=== PATIENT | female | born 1960 | race Caucasian/White ===

== ENCOUNTER → 2016-05-16 | Outpatient (CLI) | payer BC ==
[~2016-05-16] MED LIST: Albuterol 0.083% 2.5 MG/3 ML Neb Soln NEB ONE
== END ==
LOC: MW.RT 13:01
PROVIDERS: ATTEND Internal Medicine
DX: Z87.891 Personal history of nicotine dependence (principal)
CPT/HCPCS: 94060; 94729

== ENCOUNTER 2016-06-01 06:37 | Day surgery (SDC) | payer BC ==
[~2016-06-01 06:37] MED LIST changes: -Albuterol 0.083% 2.5 MG/3 ML Neb Soln NEB ONE; +Lactated Ringers 1,000 ML IV SCH; +Sodium Chloride 0.9% 10 ML Syringe FLUSH PRN; +Sodium Chloride 0.9% 2.5 ML Syringe FLUSH PRN
--- NOTE | 2016-06-01 07:14 | PCM.PREANE ---
Preanesthetic Assessment - Anesthesia/Transfusion/Family Hx Anesthesia History: Prior Anesthesia Without Reaction Transfusion History: No Prior Transfusion(s) - Physical Assessment O2 Sat by Pulse Oximetry: 95 Respiratory Rate: 18 Vital Signs: Last Vital Signs Temp 35.9 C 06/01/16 06:54 Pulse 95 06/01/16 06:54 Resp 18 06/01/16 06:54 BP 130/90 06/01/16 06:54 Pulse Ox 95 06/01/16 06:54 Height: 1.68 m Weight: 116.12 kg - Allergies Allergies/Adverse Reactions: Allergies Allergy/AdvReac Type Severity Reaction Status Date / Time No Known Allergies Allergy Verified 05/03/16 08:15 PreAnesthesia Questionnaire HEENT History: Reports: Other (see below) Other HEENT History: wears glasses Cardiovascular History: Reports: Other (see below) Other Cardiovascular History: "I have been told I had a murmur" Gastrointestinal History: Reports: None 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: Endocrine/Metabolic History: Reports: Diabetes, type II (diagnose less than a year ago), Obesity/BMI 30+ - Past Surgical History Head Surgeries/Procedures: Reports: None HEENT Surgical History: Reports: Adenoidectomy, Tonsillectomy GI Surgical History: Reports: Cholecystectomy, Colonoscopy (17 years ago) - SUBSTANCE USE Smoking Status *Q: Former Smoker (quit a year ago) Recreational Drug Use History: No - HOME MEDS Home Medications: Home Meds Estrogen,Con/M-Progest Acet [Prempro 0.45-1.5 MG] 1 tab PO DAILY 05/03/16 [ History] Krill/Om-3/DHA/EPA/Phospho/Ast [[place]-3 Krill Oil 1,000 mg] 1 tab PO DAILY 05/03 [History] Multivitamin [Multivitamins] 1 tab PO DAILY 05/03/16 [History] metFORMIN HCl [Metformin HCl] 500 mg PO BID 05/03/16 [History] Ferrous Sulfate 324 mg PO DAILY 05/06/16 [History] Psyllium Husk (With Sugar) [Metamucil Powder] 1 dose PO BID 05/06/16 [History] - CURRENT (IN HOUSE) MEDS Current Meds: Current Medications Lactated Ringer's (Ringers, Lactated) 1,000 mls @ 125 mls/hr IV ASDIRECTED ALESSANDRO Last Admin: 06/01/16 06:56 Dose: 125 mls/hr Sodium Chloride (Saline Flush) 10 ml FLUSH ASDIRECTED PRN PRN Reason: Keep Vein Open Sodium Chloride (Saline Flush) 2.5 ml FLUSH ASDIRECTED PRN PRN Reason: Keep Vein Open Preanesthetic Assessment - ANESTHESIA/TRANSFUSION/FAMILY HX Anesthesia/Transfusion History: Prior Anesthesia Type of Anesthesia Reaction: Denies: Allergy, Anesthesia Awareness, Excessive Somnolence, Excessive Nausea/Vomiting, Excessive Itching, Excessive Shivering, Malignant Hyperthermia, Malignant Hyperthermia, Family History, Pseudocholinesterase Deficiency, Pseudocholinesterase Deficiency, Family History of, Urinary Retention, Unknown, Other (see below) Family History of Anesthesia Reaction: No Other Intubation History Comment: no known problems - REVIEW OF SYSTEMS Constitutional: Reports: no symptoms 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 Respiratory: Reports: no symptoms Cardiovascular: Reports: no symptoms Other: Reports: None - PHYSICAL ASSESSMENT O2 Sat by Pulse Oximetry: 95 RR: 18 Vital Signs: Last Vital Signs Temp 35.9 C 06/01/16 06:54 Pulse 95 06/01/16 06:54 Resp 18 06/01/16 06:54 BP 130/90 06/01/16 06:54 Pulse Ox 95 06/01/16 06:54 Height: 1.68 m Weight: 116.12 kg ASA Class: 2 Mental Status: Alert & Oriented x3 Airway Class: Mallampati = 2 Dentition: Reports: Normal Dentition Thyro-Mental Finger Breadths: 3 Mouth Opening Finger Breadths: 3 ROM/Head Extension: Full Respiratory Status: lungs clear to auscultation bilaterally Cardiovascular Status: regular rate & rhythm, normal S1, S2, no murmur, blood pressure WNL - ALLERGIES Allergies/Adverse Reactions: Allergies Allergy/AdvReac Type Severity Reaction Status Date / Time No Known Allergies Allergy Verified 05/03/16 08:15 - BLOOD Blood Available: No - ANESTHESIA PLAN Preop Beta Shazia: No Anesthesia Type Planned: MAC - ACKNOWLEDGEMENTS Pt an Appropriate Candidate for the Planned Anesthesia: Yes Alternatives and Risks of Anesthesia Discussed w Pt/Guardian: Yes Pt/Guardian Understands and Agrees with Anesthesia Plan: Yes
[2016-06-01] MEDS ORDERED: Propofol 200 MG/20 ML SDV ONE ×4 (07:20→08:35)
[2016-06-01] MEDS ORDERED: Lidocaine 2% 5 ML SDV ONE (07:20)
[2016-06-01] MEDS ORDERED: fentaNYL 100 MCG/2 ML SDV ONE (07:20)
[2016-06-01] MEDS ORDERED: Midazolam 1 MG/ML 2 ML SDV ONE (07:49)
[2016-06-01] MEDS ORDERED: Glycopyrrolate 0.2 MG/ML SDV ONE (07:51)
--- NOTE | 2016-06-01 09:00 | PCM.OPNOTE ---
- General Post-Op/Procedure Note Date of Surgery/Procedure: 06/01/16 Operative Procedure(s): Incomplete colonoscopy Findings: Mild hemorrhoidal disease Pre Op Diagnosis: Hematochezia Post-Op Diagnosis: same Anesthesia Technique: MAC Primary Surgeon: Lona Shah Condition: Good
--- NOTE | 2016-06-01 09:09 | PCM.POSTAN ---
POST ANESTHESIA ASSESSMENT - MENTAL STATUS Mental Status: alert, oriented - RESPIRATORY Respiratory Status: respiratory rate WNL, airway patent, O2 saturation stable - CARDIOVASCULAR CV Status: pulse rate WNL, blood pressure stable - GASTROINTESTINAL GI Status: no symptoms - POST OP HYDRATION Hydration Status: adequate & stable - OBSERVATIONS Free Text/Narrative:: no anesthesia problems
--- NOTE | 2016-06-01 15:56 | CR ---
EXAMINATION: Single contrast barium enema HISTORY: Incomplete colonoscopy COMPARISON: None TECHNIQUE: Standard single contrast barium enema performed. FINDINGS: The colon and rectum are normally distensible. No filling defect or stricture identified. There are few scattered diverticula identified. No reflux into the terminal ileum. The appendix is v isualized. IMPRESSION: 1. Mild diverticulosis, otherwise unremarkable barium enema.
--- NOTE | 2016-06-01 22:04 | OR ---
SURGEON: YUSUF VELÁSQUEZ MD DATE OF PROCEDURE: 06/01/2016 PREOPERATIVE DIAGNOSIS: Hematochezia. POSTOPERATIVE DIAGNOSIS: Hematochezia. PROCEDURE PERFORMED: Incomplete colonoscopy. INSTRUMENT USED: Olympus colonoscope. ANESTHESIA: MAC. EXTENT OF EXAM: To the hepatic flexure. PREPARATION: Fair to poor. LIMITATIONS: Stool within the colon, extreme tortuosity throughout the colon. INDICATIONS FOR EXAMINATION: Patient is a 55-year-old female with a past medical history significant for hematochezia, as diagnosed on fecal occult blood stool testing. The patient and I discussed the colonoscopy procedure including the expected perioperative course. We discussed the risks, including bleeding, infection, damage to surrounding structures. The patient verbalized understanding and wished to proceed. PROCEDURE IN DETAIL: The patient was met in the preoperative area and we again discussed the major risks and benefits associated with the procedure. The patient verbalized understanding and wished to proceed. The patient was brought to the endoscopy suite and placed in left lateral decubitus position. A time-out was completed verifying the patient's name, age, date of , allergies, and procedure to be performed. Monitored anesthesia care was induced and continuous oxygen was provided via face mask throughout the procedure. After adequate sedation was achieved, the digital rectal exam was performed. This examination revealed mild hemorrhoidal disease. A well lubricated colonoscope was then inserted in the rectum and advanced under direct visualization to the level of the hepatic flexure. Due to extreme tortuosity of the colon. I could not advance the scope beyond this area. I attempted to place the patient in different positions and attempted pressure in different areas of the abdomen, however, after an hour of trying, I was unable to reach the cecum. The scope was then fully withdrawn while examining the color, texture, anatomy, and tear of the mucosa from the cecum to the anal canal. The remainder of the colon appeared normal other than some diverticulosis. The scope was then completely retrieved upon exiting the anal canal and the procedure was terminated. The patient was transferred to the recovery room in stable condition. ENDOSCOPIC DIAGNOSIS: Incomplete colonoscopy. RECOMMENDATION: Patient will go for barium enema later today. Will follow up on the results of this. HILDA / KATIE /[id number]
== END 2016-06-01 12:15 | disposition home or self-care (01) ==
LOC: MW.SDS 06:37
PROVIDERS: ATTEND Surgery
DX: K64.9 Unspecified hemorrhoids (principal); E11.9 Type 2 diabetes mellitus without complications; Z79.899 Other long term (current) drug therapy; Z90.49 Acquired absence of other specified parts of digestive tract; Z98.890 Other specified postprocedural states; Z78.9 Other specified health status; Z87.891 Personal history of nicotine dependence
CPT/HCPCS: 45330; 74270; J2250; J3010; J7120; J2704

== ENCOUNTER 2018-10-20 09:57 | Emergency (ER) | payer BC ==
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
== END 2018-10-20 10:50 | disposition home or self-care (01) ==
LOC: MW.ED 09:57
DX: J40 Bronchitis, not specified as acute or chronic (principal); Z90.89 Acquired absence of other organs; Z87.891 Personal history of nicotine dependence
CPT/HCPCS: 99283; 99283-25

== ENCOUNTER 2020-02-29 15:18 | Emergency (ER) | payer BC ==
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
[2020-02-29 16:15] LABS: CORONAVIRUS COVID-19 NAA POSITIVE (NEGATIVE); INFLUENZA A NAA NEGATIVE (NEGATIVE); INFLUENZA B NAA NEGATIVE (NEGATIVE)
== END 2020-02-29 16:55 | disposition home or self-care (01) ==
LOC: MW.ED 15:18
DX: U07.1 COVID-19 (principal); E11.9 Type 2 diabetes mellitus without complications; E66.9 Obesity, unspecified; Z79.4 Long term (current) use of insulin; Z90.49 Acquired absence of other specified parts of digestive tract; Z90.710 Acquired absence of both cervix and uterus; Z79.899 Other long term (current) drug therapy; Z68.39 Body mass index [BMI] 39.0-39.9, adult
CPT/HCPCS: 0240U; 99283; 99282

== ENCOUNTER 2020-09-27 07:11 | Emergency (ER) | payer BC ==
[2020-09-27 08:56] LABS: CARBON DIOXIDE,CO2 21.6 mmol/L (21.0-32.0); POTASSIUM,K 3.7 mmol/L (3.5-5.1)
[2020-09-27] MEDS ORDERED: Cephalexin 500 MG Cap PO ONE (09:05)
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
== END 2020-09-27 09:15 | disposition home or self-care (01) ==
LOC: MW.ED 07:11
DX: N30.01 Acute cystitis with hematuria (principal); E11.9 Type 2 diabetes mellitus without complications; E66.9 Obesity, unspecified; Z68.41 Body mass index [BMI] 40.0-44.9, adult; Z79.4 Long term (current) use of insulin
CPT/HCPCS: 36415; 80048; 81001; 82550; 87086; 99284; A9270; 87088; 87186